=== PATIENT | female | born 1970 | race Two or more races ===

== ENCOUNTER 2022-09-16 06:48 | Inpatient (IN) | payer MEDICARE, MEDICAID ==
[2022-09-11 16:05] LABS: BASOPHILS # (AUTO) 0.1 X10'3 (0-0.2); BASOPHILS % (AUTO) 1.2 % (0-1); EOSINOPHILS # (AUTO) 0.2 X10'3 (0-0.9); EOSINOPHILS % (AUTO) 2.1 % (0-6); LYMPHOCYTES # (AUTO) 2.7 X10'3 (1.1-4.8); LYMPHOCYTES % (AUTO) 24.1 % (21-51); MEAN CORPUSCULAR HEMOGLOBIN 30.4 PG (27.0-31.0); MEAN CORPUSCULAR HGB CONC 33.8 g/dL (33.0-36.5); MEAN CORPUSCULAR VOLUME 89.8 FL (78-98); MEAN PLATELET VOLUME 6.9 FL (7.4-10.4); MONOCYTES # (AUTO) 0.4 X10'3 (0-0.9); MONOCYTES % (AUTO) 3.8 % (2-12); NEUTROPHILS # (AUTO) 7.8 X10'3 (1.8-7.7); NEUTROPHILS % (AUTO) 68.8 % (42-75); PRE OP HEMATOCRIT 33.6 % (35.0-45.0); PRE OP HEMOGLOBIN 11.4 g/dL (12.0-16.0); PRE OP PLATELET COUNT 341 X10'3 (140-440); RED BLOOD COUNT 3.75 X10'6 (4.20-5.60); RED CELL DISTRIBUTION WIDTH 13.6 % (11.5-14.5)
[2022-09-11 16:15] LABS: ALBUMIN 3.5 G/DL (3.4-5.0); ALKALINE PHOSPHATASE 95 IU/L (46-116); BLOOD UREA NITROGEN 17 MG/DL (7-18); BUN/CREATININE RATIO 25.4 (6.6-38.0); CALCIUM 8.9 MG/DL (8.5-10.1); CHLORIDE 107 MMOL/L (99-107); CREATININE 0.67 MG/DL (0.40-0.90); PRE OP ALT 27 U/L (30-65); PRE OP ANION GAP 8 (8-16); PRE OP AST 18 U/L (10-37); PRE OP BILIRUB, TOTAL 0.1 MG/DL (0.0-1.0); PRE OP GLUCOSE 114 MG/DL (70-104); PRE OP POTASSIUM 3.5 MMOL/L (3.4-5.1); PRE OP SODIUM 142 MMOL/L (135-145); TOTAL CARBON DIOXIDE 27.5 MMOL/L (24-32); TOTAL PROTEIN 6.9 G/DL (6.4-8.2); eGFR > 90 ML/MIN
[2022-09-11 16:36] LABS: HEMOGLOBIN A1C 6.3 % (4.5-6.2)
[2022-09-16] VITALS (23 sets, daily range): BP systolic 111–165; BP diastolic 46–94
[~2022-09-16] VITALS: Ht 157.5 cm; Wt 89.4 kg
[~2022-09-16 06:48] MED LIST: CETI10TA14 PO; DICL50TA7 PO; LAMO150T6 PO; METF-1203 PO; PRAZ1CAP5 PO; ROPI3TAB4 PO; TIZA-205 PO; TROS20TA4 PO; acetaminophen 325mg tablet PO ONE; ceFAZolin inj. 2,000 MG in dextrose 5%-water 100 ML IV ONE; celeCOXIB 100mg capsule PO ONE; famotidine 20mg tablet PO ONE; gabapentin 300mg capsule PO ONE; metoclopramide 5 mg/ml inj IV ONE; oxyCODONE SR 10mg (sust. release) tab -2 tabs (20mg) PO ONE; ringers solution, lacted 1,000 ML IV SCH; tranexamic acid inj. 1,000 MG in normal saline IV soln 100ML IV ONE; vancomycin 1,500 MG in NS 300ml IV soln IV ONE
[2022-09-16] MEDS ORDERED: tizanidine 4mg tablet PO PRN (07:05)
[2022-09-16] MEDS ORDERED: HYDROcodone/acetaminophen 10/325mg tab PO PRN (07:10)
[2022-09-16] MEDS ORDERED: glucagon, human recombinant 1mg kit SUBCUT PRN (07:10)
[2022-09-16] MEDS ORDERED: bisacodyl 10mg suppository rectal RC PRN (07:10)
[2022-09-16] MEDS ORDERED: HYDROmorphone inj. 0.5 MG/0.5 ML DISP.SYRIN IV PRN (07:10)
[2022-09-16] MEDS ORDERED: diphenhydrAMINE 25mg capsule PO PRN ×2 (07:10)
[2022-09-16] MEDS ORDERED: ondansetron/PF 4mg/2ml inj IV PRN ×2 (07:10→10:45)
[2022-09-16] MEDS ORDERED: magnesium hydroxide 30ml (MOM) UD suspension PO PRN (07:10)
[2022-09-16] MEDS ORDERED: HYDROmorphone 1 mg/ml syringe IV PRN (07:10)
[2022-09-16] MEDS ORDERED: acetaminophen 325mg tablet PO PRN (07:10)
[2022-09-16] MEDS ORDERED: MESSAGE TO PHARMACY PO ONE (07:10)
[2022-09-16] MEDS ORDERED: naloxone 0.4 mg/ml inj IV PRN (07:10)
[2022-09-16] MEDS ORDERED: dextrose 50%-water 50ml dispensing syringe IV PRN ×2 (07:10)
[2022-09-16] MEDS ORDERED: DEXTROSE 15 GM of carb/4 tabs (each vial/BOTTLE has 4 tablets) PO PRN ×2 (07:10)
[2022-09-16] MEDS ORDERED: ketorolac trometh. 30mg/ml inj. ONE ×2 (09:39→10:49)
[2022-09-16] MEDS ORDERED: cloNIDine hcl/PF 100mcg/ml inj ONE ×2 (09:39→10:49)
[2022-09-16] MEDS ORDERED: epiNEPHrine 1 mg/ml inj ONE ×2 (09:39→10:49)
[2022-09-16] MEDS ORDERED: ROPIVAcaine 0.5% (5mg/ml) 30ml vial ONE ×2 (09:39→10:49)
--- NOTE | 2022-09-16 09:45 | NUR ---
PT ARRIVED TO [facility] FOR R [facility]. PT COMPLETED 5 DAYS OF HIBICLENS WASHES AND READ THE BOOKLET FOR EDUCATION. [facility] WN. PEDAL PULSES STRONG AND MARKED. Addendum: 09/16/22 at 1152 by Jolie Weiner RN Amended: Links added.
[2022-09-16] MEDS ORDERED: morphine 4 MG/ML inj SYRINge IV PRN (10:45)
[2022-09-16] MEDS ORDERED: ringers solution, lacted 1,000 ML IV SCH (10:45)
[2022-09-16] MEDS ORDERED: morphine 2 MG/ML inj. syringe IV PRN (10:45)
[2022-09-16] MEDS ORDERED: labetalol 20mg/4ml (5mg/ml) syringe IV PRN (10:45)
[2022-09-16] MEDS ORDERED: fentaNYL/PF 50MCG/1 ML 2ML syringe IV PRN ×2 (10:45)
[2022-09-16] MEDS ORDERED: hydrALAZINE 20mg/ml inj. IV PRN (10:45)
[2022-09-16] MEDS ORDERED: vancomycin 1,000mg inj ONE (10:49)
[2022-09-16] MEDS ORDERED: midazolam 1 mg/ML 2ml injection ONE (11:22)
[2022-09-16] MEDS ORDERED: fentaNYL /PF 50mcg/ml 5ml ampule ONE (11:22)
[2022-09-16] MEDS ORDERED: rocuronium 10mg/ml inj IV ONE (11:23)
[2022-09-16] MEDS ORDERED: propofol inj 20 ML IV ONE (11:23)
[2022-09-16] MEDS ORDERED: LIDOcaine 2% (20mg/ml) 5ml vial ONE (11:23)
[2022-09-16] MEDS ORDERED: ondansetron/PF 4mg/2ml inj ONE (11:46)
[2022-09-16] MEDS ORDERED: insulin Lispro (HumaLOG) vial - multi-dose SQ SCH (15:00)
[2022-09-16] MEDS: insulin glargine (Lantus) pen - multi-dose SQ SCH ×2 (15:00→21:00)
[2022-09-16] MEDS ORDERED: tranexamic acid inj. 900 MG in normal saline 100ml IV soln 91 ML IV ONE (16:00)
--- NOTE | 2022-09-16 16:01 | NUR ---
Report called to receiving nurse. Transferred via BED AND ONE BAG OF Belongings SENT WITH PT. PT C/O PAIN AT AN 8; PACU PAIN MED GIVEN THEN SENT TO FLOOR. ABLE TO USE BEDPAN TO VOID. VSS. Special Issues communicated to receiving nurse. Addendum: 09/16/22 at 1720 by Shantelle Morales RN Amended: Links added.
--- NOTE | 2022-09-16 16:42 | NUR ---
Received patient to room 360A via bed accompanied by x1 staff. Patient alert and oriented and c/o 6/10 to right hip "but just an ache right now." Patient has STEPHANIE dressing to her right hip with small shadowing drainage which was circled. Right leg immobilizer on. Ken powder pack placed. Patient able to transfer to BSC to void. Oriented patient to room and call light. Call light placed within patient's reach. Post op vitals initiated.
[2022-09-16] MEDS: HYDROcodone/acetaminophen 10/325mg tab PO PRN ×2 (17:34→22:17)
--- NOTE | 2022-09-16 18:05 | NUR ---
Patient in room [facility] 360. I have received report from RICKY Tadeo and had the opportunity to ask questions and assume patient care.
--- NOTE | 2022-09-16 18:09 | NUR ---
Problems reprioritized. Patient report given, questions answered & plan of care reviewed with RICKY Judge.
[2022-09-16] MEDS: Trospium Chloride 20 MG PO SCH (20:00)
[2022-09-16] MEDS: potassium cl 20mEq in 1/2 NS 1,000 ML IV SCH ×2 (20:10→23:00)
[2022-09-16] MEDS: gabapentin 300mg capsule PO SCH (20:11)
[2022-09-16] MEDS: ascorbic acid 500mg tablet PO SCH (20:11)
[2022-09-16] MEDS ORDERED: prazosin 1mg capsule PO SCH (21:00)
[2022-09-16] MEDS ORDERED: sennosides 8.6mg tablet PO SCH (21:00)
[2022-09-16] MEDS ORDERED: ROPINIRole 1mg tablet PO SCH (21:00)
[2022-09-16] MEDS ORDERED: VANCOMYCIN 1,500MG inj. 1,500 MG in normal saline 500ml IV soln 300 ML IV ONE (22:00)
[2022-09-17] MEDS ORDERED: lamoTRIgine 25mg tablet PO SCH (01:11)
[2022-09-17] MEDS ORDERED: lamoTRIgine 100mg tablet PO SCH (01:11)
[2022-09-17 02:00] VITALS: BP 130/65
[2022-09-17] MEDS: HYDROcodone/acetaminophen 10/325mg tab PO PRN ×2 (04:31→09:03)
[2022-09-17 06:17] LABS: BASOPHILS % (AUTO) 0.1 % (0-1); EOSINOPHILS % (AUTO) 0.2 % (0-6); HEMATOCRIT 27.5 % (35.0-45.0); HEMOGLOBIN 9.3 g/dl (12.0-16.0); LYMPHOCYTES # (AUTO) 1.6 X10'3 (1.1-4.8); LYMPHOCYTES % (AUTO) 12.1 % (21-51); MEAN CORPUSCULAR HEMOGLOBIN 30.4 PG (27.0-31.0); MEAN CORPUSCULAR VOLUME 89.3 FL (78-98); MEAN PLATELET VOLUME 6.6 FL (7.4-10.4); MONOCYTES # (AUTO) 0.9 X10'3 (0-0.9); MONOCYTES % (AUTO) 6.7 % (2-12); NEUTROPHILS # (AUTO) 10.5 X10'3 (1.8-7.7); NEUTROPHILS % (AUTO) 80.9 % (42-75); PLATELET COUNT 285 X10'3 (140-440); RED BLOOD COUNT 3.07 X10'6 (4.20-5.60); RED CELL DISTRIBUTION WIDTH 13.3 % (11.5-14.5)
[2022-09-17 06:19] LABS: ANION GAP 6 (8-16); CHLORIDE 106 MMOL/L (99-107); POTASSIUM 3.4 MMOL/L (3.5-5.1); SODIUM 138 MMOL/L (135-145); TOTAL CARBON DIOXIDE 25.7 MMOL/L (24-32)
--- NOTE | 2022-09-17 06:32 | NUR ---
Patient in room [facility] 360. I have received report from RICKY Judge and had the opportunity to ask questions and assume patient care.
--- NOTE | 2022-09-17 06:40 | NUR ---
Problems reprioritized. Patient report given, questions answered & plan of care reviewed with RICKY Tadeo.
[2022-09-17 06:50] VITALS: BP 149/65
[2022-09-17] MEDS: potassium cl 20mEq in 1/2 NS 1,000 ML IV SCH (07:00)
[2022-09-17] MEDS: Trospium Chloride 20 MG PO SCH (08:00)
[2022-09-17] MEDS ORDERED: multivitamins, therapeutics tablet PO SCH (08:00)
[2022-09-17] MEDS ORDERED: cetirizine 10mg tablet PO SCH (08:00)
[2022-09-17] MEDS ORDERED: aspirin 325mg tablet PO SCH (08:30)
[2022-09-17] MEDS: ascorbic acid 500mg tablet PO SCH (09:02)
[2022-09-17] MEDS: gabapentin 300mg capsule PO SCH (09:02)
--- NOTE | 2022-09-17 11:39 | NUR ---
Discussed with patient dc instructions. Patient verbalizes understanding of teaching. Patient dc'd with all personal belongings but patient does not want to take home leg brace as she stated she has one at home.
[2022-09-17 11:43] VITALS: BP 147/48
[2022-09-17] MEDS ORDERED: celeCOXIB 100mg capsule PO SCH (20:00)
== END 2022-09-17 11:08 | disposition home or self-care (01) | DRG 470 ==
LOC: PAS 06:48 → PAS IN 07:11 → UNDOADMIN 07:11 → SUR 3N 16:15
PROVIDERS: ADMIT Orthopaedic Surgery; ATTEND Orthopaedic Surgery
PROC: 0SR906Z Replacement of Right Hip Joint with Oxidized Zirconium on Polyethylene Synthetic Substitute, Open Approach (ICD-10-PCS; principal; 2022-09-16 11:15)
DX: M16.11 Unilateral primary osteoarthritis, right hip (principal); G89.29 Other chronic pain; F31.9 Bipolar disorder, unspecified; J44.9 Chronic obstructive pulmonary disease, unspecified; E11.9 Type 2 diabetes mellitus without complications; E66.01 Morbid (severe) obesity due to excess calories; Z68.36 Body mass index [BMI] 36.0-36.9, adult; Z79.82 Long term (current) use of aspirin
CPT/HCPCS: 36415; 72170; 80051; 80053; 82948; 83036; 85025; 86885; 86900; 86901; 87081; 97116; 97161; A4215; A4618; A7000; C1776; G0378; J0171; J0690; J0735; J1815; J1885; J2250; J2270; J2405; J2704; J2765; J2795; J3010; J3370; J3480; J3490; J7040; J7060; J7120

== ENCOUNTER 2022-10-12 13:46 | Emergency (ER) | payer MEDICARE, MEDICAID ==
[~2022-10-12] VITALS: Ht 157.5 cm; Wt 86.4 kg
[~2022-10-12 13:46] MED LIST changes: -acetaminophen 325mg tablet PO ONE; -ceFAZolin inj. 2,000 MG in dextrose 5%-water 100 ML IV ONE; -celeCOXIB 100mg capsule PO ONE; -famotidine 20mg tablet PO ONE; -gabapentin 300mg capsule PO ONE; -metoclopramide 5 mg/ml inj IV ONE; -oxyCODONE SR 10mg (sust. release) tab -2 tabs (20mg) PO ONE; -ringers solution, lacted 1,000 ML IV SCH; -tranexamic acid inj. 1,000 MG in normal saline IV soln 100ML IV ONE; -vancomycin 1,500 MG in NS 300ml IV soln IV ONE
[2022-10-12 14:08] VITALS: BP 139/61
[2022-10-12] MEDS ORDERED: HYDROcodone/acetaminophen 10/325mg tab PO ONE (21:00)
--- NOTE | 2022-10-12 21:16 | NUR ---
verified and agreed with swetha BAINS general assessment.
[2022-10-12] MEDS ORDERED: HYDR-3965 PO (21:26)
== END 2022-10-12 22:01 | disposition home or self-care (01) ==
LOC: ER 13:46
DX: M25.551 Pain in right hip (principal); E11.9 Type 2 diabetes mellitus without complications; G89.29 Other chronic pain; M54.50 Low back pain, unspecified; F17.200 Nicotine dependence, unspecified, uncomplicated; Z88.5 Allergy status to narcotic agent
CPT/HCPCS: 73502; 99283

== ENCOUNTER 2024-08-31 22:12 | Inpatient (IN) | payer MEDICARE, MEDICAID ==
[~2024-08-31] VITALS: Ht 157.5 cm; Wt 72.6 kg
[~2024-08-31 22:12] MED LIST changes: +ROPI3TAB21 PO; -ROPI3TAB4 PO
[2024-08-31 22:48] LABS: BASOPHILS # (AUTO) 0.1 X10'3 (0-0.2); BASOPHILS % (AUTO) 0.4 % (0-1); EOSINOPHILS % (AUTO) 0 % (0-6); HEMATOCRIT 41.9 % (35.0-45.0); HEMOGLOBIN 13.7 g/dl (12.0-16.0); LYMPHOCYTES # (AUTO) 0.9 X10'3 (1.1-4.8); LYMPHOCYTES % (AUTO) 3.6 % (21-51); MEAN CORPUSCULAR HEMOGLOBIN 27.7 PG (27.0-31.0); MEAN CORPUSCULAR HGB CONC 32.8 g/dL (33.0-36.5); MEAN CORPUSCULAR VOLUME 84.6 FL (78-98); MEAN PLATELET VOLUME 5.8 FL (7.4-10.4); MONOCYTES # (AUTO) 0.6 X10'3 (0-0.9); MONOCYTES % (AUTO) 2.6 % (2-12); NEUTROPHILS # (AUTO) 23.4 X10'3 (1.8-7.7); NEUTROPHILS % (AUTO) 93.4 % (42-75); PLATELET COUNT 459 X10'3 (140-440); RED BLOOD COUNT 4.95 X10'6 (4.20-5.60); RED CELL DISTRIBUTION WIDTH 14.4 % (11.5-14.5)
[2024-08-31 22:50] LABS: ALBUMIN 3.1 G/DL (3.4-5.0); ANION GAP 18 (8-16); BLOOD UREA NITROGEN 17 MG/DL (7-18); BUN/CREATININE RATIO 17.7 (10.0-20.0); CALCIUM 9.6 MG/DL (8.5-10.1); CHLORIDE 100 MMOL/L (99-107); CREATININE 0.96 MG/DL (0.40-0.90); GLUCOSE 213 MG/DL (70-104); POTASSIUM 3.4 MMOL/L (3.5-5.1); SODIUM 134 MMOL/L (135-145); eCRCL 53 ML/MIN; eGFR 61 ML/MIN
[2024-08-31] MEDS: normal saline 1000ml 1,000 ML IV ONE (23:24)
[2024-08-31 23:30] LABS: LIPASE 21 U/L (16-77)
[2024-08-31] MEDS ORDERED: iohexol 300mg/ml 100ml inj. ONE (23:35)
[2024-08-31] MEDS: morphine 4 MG/ML inj SYRINge IV ONE (23:43)
[2024-08-31] MEDS: ondansetron/PF 4mg/2ml inj IV ONE (23:43)
[2024-09-01] VITALS (7 sets, daily range): BP systolic 101–120; BP diastolic 50–64; PULSE 94–112; RESP 14–20; TEMP 97.1–99.2; O2SAT 98–100
[2024-09-01] MEDS: piperacillin/tazo 4.5gm/100ml 100 ML IV STA (00:33)
[2024-09-01] MEDS: HYDROmorphone inj. 0.5 MG/0.5 ML DISP.SYRIN IV ONE (01:47)
[2024-09-01 03:36] LABS: BILIRUBIN,URINE SMALL (Neg); CLARITY,URINE CLEAR (Clear); GLUCOSE, URINE NEGATIVE (Neg); KETONES,URINE 40 mg/dl (Neg); LEUKOCYTE ESTERASE ,URINE NEGATIVE (Neg); OCCULT BLOOD,URINE NEGATIVE (Neg); PH,URINE 6.5 (4.8-8.0); PROTEIN,URINE TRACE mg/dl (Neg); UROBILINOGEN,URINE 0.2 E.U/dL (0.2-1.0)
[2024-09-01 03:37] LABS: COLOR,URINE DARK YELLOW (Yellow); UA COLLECTION TYPE STRAIGHT CATH
[2024-09-01 03:38] LABS: NITRITES, URINE NEGATIVE (Neg)
[2024-09-01 03:55] LABS: BACTERIA,URINE FEW /HPF (Neg)
[2024-09-01] MEDS: piperacillin/tazo 4.5gm/100ml 100 ML IV SCH (03:55)
[2024-09-01 03:56] LABS: RENAL CELLS, URINE FEW /HPF; SQUAMOUS EPITHELIAL CELL,UR FEW /LPF (FEW); TRANSITIONAL EPI CELLS,URINE FEW /HPF
[2024-09-01] MEDS: normal saline 1000ml 1,000 ML IV ONE ×2 (03:56)
[2024-09-01] MEDS: HYDROmorphone 1 mg/ml syringe IV ONE (04:38)
[2024-09-01] MEDS ORDERED: magnesium sulf-water 4G/100mL 100 ML IV PRN (04:55)
[2024-09-01] MEDS ORDERED: acetaminophen 325mg tablet PO PRN ×2 (04:55)
[2024-09-01] MEDS ORDERED: mag hydrox/Alum hydrox/simeth 30ml oral suspension PO PRN (04:55)
[2024-09-01] MEDS ORDERED: magnesium sulf-water 2g/50mL 50 ML IV PRN (04:55)
[2024-09-01] MEDS ORDERED: magnesium Cl slow-release 64mg tablet PO PRN (04:55)
[2024-09-01] MEDS ORDERED: potassium Cl 20 mEq SR tablet PO PRN (04:55)
[2024-09-01] MEDS: acetaminophen 1,000mg/100ml IV 100 ML IV SCH (05:00)
[2024-09-01] MEDS: acetaminophen 1,000mg/100ml IV 100 ML IV ONE (05:08)
[2024-09-01] MEDS: HYDROcodone/acetaminophen 10/325mg tab PO PRN (07:03)
[2024-09-01] MEDS: heparin, porcine 5000 units/ml vial SQ SCH (08:03)
[2024-09-01] MEDS: potassium Cl 20 mEq SR tablet PO PRN (08:03)
[2024-09-01] MEDS: docusate sod 100mg capsule PO SCH (08:03)
[2024-09-01] MEDS: normal saline 1000ml 1,000 ML IV SCH (08:04)
[2024-09-01] MEDS: polyethylene glycol 3350 17gm powd pack PO SCH (08:04)
[2024-09-01] MEDS: K and/or MAG REPLACEMENT MC SCH (08:05)
[2024-09-01 08:10] LABS: BASOPHILS % (AUTO) 0 % (0-1); EOSINOPHILS % (AUTO) 0 % (0-6); HEMATOCRIT 36.5 % (35.0-45.0); LYMPHOCYTES % (AUTO) 4.7 % (21-51); MEAN CORPUSCULAR HGB CONC 32.8 g/dL (33.0-36.5); MEAN CORPUSCULAR VOLUME 85.3 FL (78-98); MEAN PLATELET VOLUME 5.9 FL (7.4-10.4); MONOCYTES # (AUTO) 0.9 X10'3 (0-0.9); MONOCYTES % (AUTO) 4.2 % (2-12); NEUTROPHILS # (AUTO) 19.2 X10'3 (1.8-7.7); NEUTROPHILS % (AUTO) 91.1 % (42-75); PLATELET COUNT 371 X10'3 (140-440); RED BLOOD COUNT 4.28 X10'6 (4.20-5.60); RED CELL DISTRIBUTION WIDTH 14.6 % (11.5-14.5); WHITE BLOOD COUNT 21.1 X10'3 (4.5-11.0)
[2024-09-01 08:31] LABS: ALANINE AMINOTRANSFERASE 10 U/L (12-78); ALBUMIN 2.1 G/DL (3.4-5.0); ALBUMIN/GLOBULIN RATIO 0.7 (1.1-1.5); ALKALINE PHOSPHATASE 97 IU/L (46-116); ANION GAP 11 (8-16); ASPARTATE AMINO TRANSFERASE 16 U/L (10-37); BILIRUBIN,TOTAL 0.4 MG/DL (0.1-1.0); BLOOD UREA NITROGEN 18 MG/DL (7-18); BUN/CREATININE RATIO 19.4 (10.0-20.0); CALCIUM 7.7 MG/DL (8.5-10.1); CHLORIDE 108 MMOL/L (99-107); CREATININE 0.93 MG/DL (0.40-0.90); GLUCOSE 167 MG/DL (70-104); POTASSIUM 3.3 MMOL/L (3.5-5.1); SODIUM 137 MMOL/L (135-145); TOTAL CARBON DIOXIDE 18.5 MMOL/L (24-32); TOTAL PROTEIN 5.3 G/DL (6.4-8.2); eCRCL 55 ML/MIN; eGFR 63 ML/MIN
[2024-09-01 08:36] LABS: HEMOGLOBIN A1C 5.9 % (4.5-6.2)
[2024-09-01] MEDS: piperacillin/tazo 3.375gm/50ml 50 ML IV SCH (12:20)
[2024-09-01] MEDS: ondansetron/PF 4mg/2ml inj IV PRN (13:18)
[2024-09-01] MEDS: metoclopramide 5 mg/ml inj IV PRN (15:14)
[2024-09-01] MEDS: potassium Cl 40MEQ/1/2NS 520ml 520 ML IV PRN (17:13)
[2024-09-02 05:54] LABS: INR 1.2 INR; PROTHROMBIN TIME 12.1 SECONDS (9.0-12.0)
[2024-09-02 05:58] LABS: ALBUMIN 1.9 G/DL (3.4-5.0); ANION GAP 7 (8-16); BLOOD UREA NITROGEN 12 MG/DL (7-18); BUN/CREATININE RATIO 16.9 (10.0-20.0); CALCIUM 7.8 MG/DL (8.5-10.1); CHLORIDE 108 MMOL/L (99-107); CREATININE 0.71 MG/DL (0.40-0.90); GLUCOSE 110 MG/DL (70-104); PHOSPHORUS 2.4 MG/DL (2.3-4.5); POTASSIUM 3.7 MMOL/L (3.5-5.1); SODIUM 136 MMOL/L (135-145); TOTAL CARBON DIOXIDE 21.3 MMOL/L (24-32); eCRCL 72 ML/MIN; eGFR 86 ML/MIN
[2024-09-02 06:00] VITALS: BP 121/47; PULSE 87; RESP 20; TEMP 97.6; O2SAT 99
[2024-09-02 06:20] LABS: BASOPHILS % (AUTO) 0.2 % (0-1); EOSINOPHILS % (AUTO) 0.2 % (0-6); HEMATOCRIT 32.8 % (35.0-45.0); HEMOGLOBIN 10.7 g/dl (12.0-16.0); LYMPHOCYTES # (AUTO) 1.5 X10'3 (1.1-4.8); MEAN CORPUSCULAR HEMOGLOBIN 27.8 PG (27.0-31.0); MEAN CORPUSCULAR HGB CONC 32.6 g/dL (33.0-36.5); MEAN CORPUSCULAR VOLUME 85.5 FL (78-98); MEAN PLATELET VOLUME 6.1 FL (7.4-10.4); MONOCYTES # (AUTO) 0.9 X10'3 (0-0.9); MONOCYTES % (AUTO) 5.8 % (2-12); NEUTROPHILS # (AUTO) 12.5 X10'3 (1.8-7.7); NEUTROPHILS % (AUTO) 83.8 % (42-75); PLATELET COUNT 329 X10'3 (140-440); RED BLOOD COUNT 3.84 X10'6 (4.20-5.60); RED CELL DISTRIBUTION WIDTH 14.5 % (11.5-14.5); WHITE BLOOD COUNT 14.9 X10'3 (4.5-11.0)
[2024-09-02] MEDS: morphine 2 MG/ML inj. syringe IV PRN (08:37)
[2024-09-02 10:16] VITALS: BP 105/51; PULSE 88; RESP 22; TEMP 98.3; O2SAT 98
[2024-09-02] MEDS: DOXYCYCLINE 100MG CAPSULE PO SCH (17:49)
[2024-09-02 18:00] VITALS: BP 130/59; PULSE 84; RESP 16; TEMP 99.4; O2SAT 97
[2024-09-02 20:00] VITALS: RESP 16; O2SAT 97
[2024-09-02 22:00] VITALS: BP 109/42; PULSE 89; RESP 16; TEMP 98; O2SAT 95
[2024-09-03 06:00] VITALS: BP 105/43; PULSE 79; RESP 16; TEMP 97.5; O2SAT 96
[2024-09-03 06:13] LABS: BASOPHILS % (AUTO) 0.5 % (0-1); EOSINOPHILS # (AUTO) 0.1 X10'3 (0-0.9); EOSINOPHILS % (AUTO) 0.6 % (0-6); HEMATOCRIT 30.1 % (35.0-45.0); HEMOGLOBIN 10.1 g/dl (12.0-16.0); LYMPHOCYTES # (AUTO) 1.7 X10'3 (1.1-4.8); LYMPHOCYTES % (AUTO) 16.8 % (21-51); MEAN CORPUSCULAR HEMOGLOBIN 28.7 PG (27.0-31.0); MEAN CORPUSCULAR HGB CONC 33.5 g/dL (33.0-36.5); MEAN CORPUSCULAR VOLUME 85.5 FL (78-98); MEAN PLATELET VOLUME 6.1 FL (7.4-10.4); MONOCYTES # (AUTO) 0.9 X10'3 (0-0.9); MONOCYTES % (AUTO) 8.5 % (2-12); NEUTROPHILS # (AUTO) 7.4 X10'3 (1.8-7.7); NEUTROPHILS % (AUTO) 73.6 % (42-75); PLATELET COUNT 323 X10'3 (140-440); RED BLOOD COUNT 3.52 X10'6 (4.20-5.60); RED CELL DISTRIBUTION WIDTH 14.5 % (11.5-14.5); WHITE BLOOD COUNT 10.1 X10'3 (4.5-11.0)
[2024-09-03 06:15] LABS: ALBUMIN 1.8 G/DL (3.4-5.0); ANION GAP 9 (8-16); BLOOD UREA NITROGEN 8 MG/DL (7-18); BUN/CREATININE RATIO 13.8 (10.0-20.0); CALCIUM 7.8 MG/DL (8.5-10.1); CHLORIDE 104 MMOL/L (99-107); CREATININE 0.58 MG/DL (0.40-0.90); GLUCOSE 74 MG/DL (70-104); PHOSPHORUS 2.4 MG/DL (2.3-4.5); POTASSIUM 3.1 MMOL/L (3.5-5.1); SODIUM 135 MMOL/L (135-145); TOTAL CARBON DIOXIDE 22.2 MMOL/L (24-32); eCRCL 88 ML/MIN; eGFR > 90 ML/MIN
[2024-09-03 10:00] VITALS: BP 102/42; PULSE 81; RESP 16; TEMP 97.4; O2SAT 97
[2024-09-03 10:37] VITALS: RESP 16; O2SAT 97
[2024-09-03] MEDS: HYDROcodone/acetaminophen 5mg/325mg tablet PO PRN (13:09)
[2024-09-03 14:09] VITALS: RESP 16
[2024-09-03] MEDS ORDERED: POTA-207 PO (15:05)
[2024-09-03] MEDS ORDERED: HYDR-3964 PO (15:05)
[2024-09-03] MEDS ORDERED: DOXY-224 PO (15:05)
[2024-09-03] MEDS ORDERED: AMOX-580 PO (15:05)
[2024-09-06 05:56] LABS: HBSAG SCREEN Negative (Negative)
== END 2024-09-03 16:38 | disposition home or self-care (01) | DRG 872 ==
LOC: ER 22:12 → ED HOLD 09-01 04:57 → EDBEDREQ 09-01 06:15 → SUR 3N 09-01 06:42
PROVIDERS: ADMIT Internal Medicine Critical Care Medicine; ATTEND Family Medicine
PROC: BW211ZZ Computerized Tomography (CT Scan) of Abdomen and Pelvis using Low Osmolar Contrast (ICD-10-PCS; principal; 2024-08-31)
DX: A41.9 Sepsis, unspecified organism (principal); A09 Infectious gastroenteritis and colitis, unspecified; N17.9 Acute kidney failure, unspecified; E87.1 Hypo-osmolality and hyponatremia; E87.20 Acidosis, unspecified; T85.79XA Infection and inflammatory reaction due to other internal prosthetic devices, implants and grafts, initial encounter; E11.9 Type 2 diabetes mellitus without complications; E87.6 Hypokalemia; F31.9 Bipolar disorder, unspecified; G89.29 Other chronic pain; M54.9 Dorsalgia, unspecified; Y83.8 Other surgical procedures as the cause of abnormal reaction of the patient, or of later complication, without mention of misadventure at the time of the procedure; F41.9 Anxiety disorder, unspecified; Z79.899 Other long term (current) drug therapy; Z88.8 Allergy status to other drugs, medicaments and biological substances; Z79.84 Long term (current) use of oral hypoglycemic drugs; Y92.89 Other specified places as the place of occurrence of the external cause
CPT/HCPCS: 36415; 71045; 74018; 74177; 80048; 80053; 81001; 83036; 83605; 83690; 83735; 84100; 84145; 84484; 85025; 85610; 87040; 87081; 87088; 87340; 93005; 97161; 97530; 99285; A6253; A6258; C1758; G0378; J0131; J1171; J1644; J2270; J2405; J2543; J2765; J3480; J7030; Q9967

== ENCOUNTER 2024-09-20 19:23 | Emergency (ER) | payer MEDICARE, MEDICAID ==
[~2024-09-20] VITALS: Ht 233.7 cm; Wt 73.0 kg
[~2024-09-20 19:23] MED LIST changes: +AMOX-580 PO; +DOXY-224 PO; +HYDR-3964 PO; +POTA-207 PO
[2024-09-20 19:27] VITALS: TEMP 98
[2024-09-20 19:49] LABS: BASOPHILS % (AUTO) 0.3 % (0-1); EOSINOPHILS # (AUTO) 0.1 X10'3 (0-0.9); EOSINOPHILS % (AUTO) 1.5 % (0-6); HEMATOCRIT 31.6 % (35.0-45.0); HEMOGLOBIN 10.7 g/dl (12.0-16.0); LYMPHOCYTES # (AUTO) 2.8 X10'3 (1.1-4.8); MEAN CORPUSCULAR HEMOGLOBIN 28.2 PG (27.0-31.0); MEAN CORPUSCULAR HGB CONC 33.8 g/dL (33.0-36.5); MEAN CORPUSCULAR VOLUME 83.5 FL (78-98); MEAN PLATELET VOLUME 5.3 FL (7.4-10.4); MONOCYTES # (AUTO) 0.6 X10'3 (0-0.9); MONOCYTES % (AUTO) 9.7 % (2-12); NEUTROPHILS # (AUTO) 2.3 X10'3 (1.8-7.7); NEUTROPHILS % (AUTO) 39.5 % (42-75); PLATELET COUNT 468 X10'3 (140-440); RED BLOOD COUNT 3.78 X10'6 (4.20-5.60); RED CELL DISTRIBUTION WIDTH 15.4 % (11.5-14.5); WHITE BLOOD COUNT 5.7 X10'3 (4.5-11.0)
[2024-09-20 20:05] LABS: ANION GAP 9 (8-16); BILIRUBIN,TOTAL 0.3 MG/DL (0.1-1.0); BLOOD UREA NITROGEN 10 MG/DL (7-18); BUN/CREATININE RATIO 10.9 (10.0-20.0); CALCIUM 8.4 MG/DL (8.5-10.1); CHLORIDE 100 MMOL/L (99-107); CREATININE 0.92 MG/DL (0.40-0.90); GLUCOSE 103 MG/DL (70-104); POTASSIUM 3.1 MMOL/L (3.5-5.1); SODIUM 133 MMOL/L (135-145); TOTAL CARBON DIOXIDE 24.5 MMOL/L (24-32); TOTAL PROTEIN 6.2 G/DL (6.4-8.2); eCRCL 81 ML/MIN; eGFR 64 ML/MIN
[2024-09-20 20:06] LABS: ALANINE AMINOTRANSFERASE 16 U/L (12-78); ALBUMIN 2.6 G/DL (3.4-5.0); ALBUMIN/GLOBULIN RATIO 0.7 (1.1-1.5); ALKALINE PHOSPHATASE 108 IU/L (46-116); ASPARTATE AMINO TRANSFERASE 17 U/L (10-37)
[2024-09-20 20:11] VITALS: BP 134/67; PULSE 80; O2SAT 100
[2024-09-20 20:13] LABS: PRO BRAIN NATRIURETIC PEPTIDE 104 PG/ML (0-125)
[2024-09-20] MEDS: ketorolac trometh 15mg/ml vial 15 MG/ML ML IV ONE (21:01)
[2024-09-20] MEDS: ondansetron/PF 4mg/2ml inj IV ONE (21:02)
[2024-09-20 21:05] VITALS: RESP 16
[2024-09-20] MEDS: morphine 4 MG/ML inj SYRINge IV ONE (21:05)
[2024-09-20] MEDS: orphenadrine citrate 60mg/2ml inj. IM ONE (21:06)
== END 2024-09-20 21:40 | disposition home or self-care (01) ==
LOC: ER 19:24
DX: M54.2 Cervicalgia (principal); M54.9 Dorsalgia, unspecified; E11.9 Type 2 diabetes mellitus without complications; Z88.0 Allergy status to penicillin; Z88.1 Allergy status to other antibiotic agents; Z88.5 Allergy status to narcotic agent; Z88.7 Allergy status to serum and vaccine; W19.XXXA Unspecified fall, initial encounter; Y93.89 Activity, other specified; Y92.89 Other specified places as the place of occurrence of the external cause; Y99.8 Other external cause status
CPT/HCPCS: 36415; 70450; 71045; 72125; 72128; 72131; 80053; 83880; 84484; 85025; 93005; 96372; 96374; 96375; 99285; J1885; J2270; J2360; J2405